=== PATIENT | female | born 1985 | race Caucasian/White ===

== ENCOUNTER → 2018-04-21 | Outpatient (CLI) | payer OTHER ==
--- NOTE | 2018-04-21 14:20 | RAD ---
EXAM: Right foot, 3 views. HISTORY: Stepped on a metal pole. Pain. COMPARISON: None. FINDINGS: 3 views of the right foot are obtained. There is no fracture, dislocation or subluxation. There is a small accessory navicular bone. There is no radiodense foreign body. IMPRESSION: No acute osseous finding. Electronically signed by: Kaitlin Palomo MD (04/21/2018 2:17 PM) [id number]
== END | disposition home or self-care (01) ==
LOC: PMG 10:58
PROVIDERS: ATTEND Physician Assistant
DX: M79.671 Pain in right foot (principal)
CPT/HCPCS: 73630